=== PATIENT | male | born 1995 | race Caucasian/White ===

== ENCOUNTER 2020-10-31 21:55 | Emergency (ER) | payer SELFPAY ==
[2020-10-31 22:10] VITALS: TEMP 98.7
[2020-10-31 23:07] LABS: STREP SCREEN NEGATIVE
[2020-10-31 23:32] VITALS: BP 114/71; PULSE 73
== END 2020-10-31 23:32 | disposition home or self-care (01) ==
LOC: COL.ER 21:55
PROVIDERS: Nurse Practitioner Primary Care
DX: J03.90 Acute tonsillitis, unspecified (principal)

== ENCOUNTER 2022-06-23 00:06 | Emergency (ER) | payer SELFPAY ==
[2022-06-23 00:40] VITALS: BP 123/64; TEMP 97.9
[2022-06-23] MEDS ORDERED: TORADOL 10MG TA10 MG PO ×2 (00:44→01:02)
[2022-06-23 01:15] VITALS: PULSE 71
== END 2022-06-23 01:15 | disposition home or self-care (01) ==
LOC: COL.ER 00:06
DX: U07.1 COVID-19 (principal)

== ENCOUNTER 2022-12-19 19:50 | Emergency (ER) | payer OTHER ==
[~2022-12-19 19:50] MED LIST: INDOCIN 25MG CA25 MG PO; TORADOL 10MG TA10 MG PO
[2022-12-19 20:07] VITALS: BP 105/65
[2022-12-19 20:55] LABS: STREP SCREEN POSITIVE
[2022-12-19] MEDS ORDERED: AMOXICILLIN 50500 MG PO (21:04)
[2022-12-19 21:10] VITALS: PULSE 82; TEMP 99
== END 2022-12-19 21:10 | disposition home or self-care (01) ==
LOC: COL.ER 19:50
PROVIDERS: Nurse Practitioner Primary Care
DX: J03.00 Acute streptococcal tonsillitis, unspecified (principal); Z20.822 Contact with and (suspected) exposure to COVID-19